=== PATIENT | female | born 1970 | race Caucasian/White ===

== ENCOUNTER 2021-03-31 12:48 | Emergency (ER) | payer OTHER, BC ==
[~2021-03-31] VITALS: Ht 167.6 cm; Wt 100.0 kg
[2021-03-31] MEDS ORDERED: LISINOP/HCTZ1 TAB PO (13:07)
[2021-03-31] MEDS ORDERED: EFFEXOR XR150 MG PO (13:08)
[2021-03-31] MEDS ORDERED: WELLBUTRIN XL150 MG PO (13:08)
[2021-03-31] MEDS ORDERED: NEXIUM20 M1 PO (13:09)
[2021-03-31] MEDS ORDERED: VITAMIN D PO (13:09)
[2021-03-31] MEDS ORDERED: XYZAL ALLERGY 245 MG PO (13:13)
[2021-03-31] MEDS ORDERED: LORTAB 1010 MG PO (13:16)
[2021-03-31] MEDS ORDERED: XANAX0.5 MG PO (13:17)
[2021-03-31] MEDS ORDERED: AIMOVIG140 MG/ML (13:18)
[2021-03-31] MEDS ORDERED: NURTEC75 MG PO (13:19)
[2021-03-31 13:59] LABS: HEMATOCRIT 42.1 % (37.0-47.0); HEMOGLOBIN 12.8 g/dl (12.0-16.0); IMMATURE GRANULOCYTES 0.9 % (0.0-5.0); MEAN CORPUSCULAR HGB 29.5 pG CALC (26.0-32.0); MEAN CORPUSCULAR HGB CONC 30.4 g/dL CAL (32.0-36.0); NEUT# 5.07 thou/uL (2.00-7.15); RED BLOOD COUNT 4.34 mill/uL (4.20-5.60); RED CELL DISTRI WIDTH 13.2 % (11.5-15.5)
[2021-03-31 14:03] LABS: ALBUMIN 3.9 g/dL (3.2-5.0); ALKALINE PHOSPHATASE 71 u/l (38-126); ANION GAP 9 (6-22 (CALC)); BILIRUBIN, TOTAL 0.2 mg/dL (0.0-1.4); BUN 20 mg/dL (7-17); BUN/CREATININE RATIO 19 (12-20 (CALC)); CARBON DIOXIDE 30 mmol/l (22-30); CHLORIDE 101 mmol/l (95-108); CREATININE 1.1 mg/dL (0.5-1.0); GFR 53 ML/MIN (>=60 (CALC)); GFR FOR AFR.AMER. > 60 ML/MIN (>=60 (CALC)); POTASSIUM 3.9 mmol/l (3.5-5.1); SGOT/AST 19 u/l (14-36); SODIUM 136 mmol/l (137-146); TOTAL PROTEIN 7.3 g/dL (6.3-8.2)
[2021-03-31 14:15] LABS: MYOGLOBIN 33 ng/mL (0 - 62)
[2021-03-31 15:40] VITALS: BP 147/79
== END 2021-03-31 15:39 | disposition home or self-care (01) | DRG 305 ==
LOC: ED 12:48
PROVIDERS: Emergency Medicine
DX: I10 Essential (primary) hypertension (principal); F41.9 Anxiety disorder, unspecified; F32.9 Major depressive disorder, single episode, unspecified; F17.200 Nicotine dependence, unspecified, uncomplicated

== ENCOUNTER 2023-03-06 13:02 | Emergency (ER) | payer BC, OTHER ==
[~2023-03-06] VITALS: Ht 167.6 cm; Wt 108.0 kg
[~2023-03-06 13:02] MED LIST: AIMOVIG140 MG/ML; EFFEXOR XR150 MG PO; LISINOP/HCTZ1 TAB PO; LORTAB 1010 MG PO; NEXIUM20 M1 PO; NURTEC75 MG PO; VITAMIN D PO; WELLBUTRIN XL150 MG PO; XANAX0.5 MG PO; XYZAL ALLERGY 245 MG PO
[2023-03-06] MEDS ORDERED: TORADOL PO (13:20)
[2023-03-06] MEDS ORDERED: DECADRON4 MG PO (13:20)
[2023-03-06 14:11] VITALS: BP 124/77
== END 2023-03-06 14:19 | disposition home or self-care (01) | DRG 552 ==
LOC: ED 13:02
DX: M54.41 Lumbago with sciatica, right side (principal); I10 Essential (primary) hypertension; F41.9 Anxiety disorder, unspecified; F32.A Depression, unspecified; F17.200 Nicotine dependence, unspecified, uncomplicated